=== PATIENT | male | born 1960 | race Two or more races ===

== ENCOUNTER 2025-04-18 09:57 | Inpatient (IN) | payer OTHER ==
[~2025-04-18] VITALS: Ht 175.3 cm; Wt 98.4 kg
--- NOTE | 2025-04-18 11:08 | NUR ---
PACIENTE ALERTA Y ORIENTADO X 3, REFIERE PRESENTAR FALTA DE AIRE AL DORMIR, DOLOR DE CHANDRAKANT Y CYNTHIA DOLOR DE GARGANTA HACE 5 FERRARI. SE MIDEN V/S SE REALIZA EKG Y SE UBICA.
[2025-04-18] MEDS ORDERED: ELIQUIS5 MG (11:11)
[2025-04-18] MEDS ORDERED: COZAAR100 MG (11:12)
[2025-04-18] MEDS ORDERED: EPLERENONE25 MG (11:12)
[2025-04-18] MEDS ORDERED: METFORMIN HCL1000 M2 (11:13)
[2025-04-18] MEDS ORDERED: NIFEDIPINE 10 MG CAPSULE PO ONE ×2 (11:30→12:05)
[2025-04-18] MEDS ORDERED: APIXABAN 5 MG TABLET PO SCH (11:35)
[2025-04-18] MEDS ORDERED: INSULIN GLARGINE,HUM.REC.ANLOG 1,000 UNITS/10 ML UNITS SUBCUTANEO ONE (11:45)
[2025-04-18] MEDS ORDERED: FAMOtidine 10 MG/ML (4ML VIAL) IV ONE (11:45)
[2025-04-18] MEDS ORDERED: 0.9 % SODIUM CHLORIDE 1,000 ML IV SCH (11:45)
[2025-04-18] MEDS ORDERED: INSULIN REGULAR, HUMAN 1,000 UNIT/10 ML UNITS SUBCUTANEO ONE (11:45)
[2025-04-18] MEDS ORDERED: LEVALBUTEROL HCL 1.25 MG/3 ML SOLUTION IH SCH (12:00)
[2025-04-18] MEDS ORDERED: FAMOTIDINE/PF 20 MG/2 ML VIAL ONE (12:08)
[2025-04-18] MEDS ORDERED: LEVALBUTEROL HCL 1.25 MG/3 ML SOLUTION IH ONE ×2 (12:16→17:56)
--- NOTE | 2025-04-18 12:32 | NUR ---
PACIENTE EVALUADO POR MD SALCEDOIEN ORDENA TRATMIENTO MEDICO, SE LE ORIENTA A PACIENTE SOBRE EL MISMO Y REFIERE ENTENDER. SE LE COLECTAN MUESTRAS DE LABORATORIO Y SE CANALIZA BAJO MEDIDAS ASEPTICAS. YADI GARNETT LE ADMINISTRA MEDICAMENTOS KELSI ORDEN.
[2025-04-18 12:47] LABS: BASO % 0.4 % (0.1-1.2); EOS # 0.18 (0.04-0.54); EOS % 2.6 % (0.7-7.0); LYMPH # 0.30 (1.18-3.74); LYMPH % 4.4 % (19.3-53.1); MEAN PLATELET VOLUME 11.60 fl (9.4-12.4); MONO # 0.59 (0.24-0.82); MONO % 8.7 % (4.7-12.5); NEUT # 5.70 (1.56-6.13); NEUT % 83.6 % (34.0-71.1); RED CELL DISTRIBUTION WIDTH 12.2 % (11.6-14.4)
[2025-04-18 13:12] LABS: INR 0.95
[2025-04-18 13:40] LABS: URINE APPEARANCE Clear; URINE BILIRRUBIN Negative (NEGATIVE); URINE BLOOD Moderate; URINE COLOR Yellow; URINE KETONE Negative (NEGATIVE); URINE LEUKOCYTE Negative; URINE NITRATE Negative; URINE UROBILINOGEN 0.2 E.U./dl
[2025-04-18 13:41] LABS: URINE BACTERIA 11.9 uL (0.0-1933); URINE RBC 46.1 uL (0.0-20.8)
[2025-04-18 13:43] LABS: ALT/SGPT 63.0 U/L (12-78); AST/SGOT 34.0 U/L (15-37); BILIRUBIN TOTAL 0.3 mg/dL (0.3-1.2); BUN CREA RATIO 15.0 (7.0-25.0); CREATININE SERUM 2.92 mg/dL (0.70-1.30); GFR 21.91; GLOBULINA 3.7 G/DL (2.4-3.5); OSMOLALITY SERUM 304.0 MOSM/KG (275-295)
--- NOTE | 2025-04-18 13:47 | NUR ---
SE MONITOREAN S/V Y SE LE NOTIFICA A PRAVIN MIGUEL.
[2025-04-18 13:50] LABS: GLUCOSE FASTING 403.0 mg/dL (65-100)
[2025-04-18 13:51] LABS: URINE CAST 0.87 uL (0.0-1.40); URINE EPITHELIAL CELLS 0.9 uL (0.0-38.8); URINE GLUCOSE >=1000 MG/DL (NEGATIVE); URINE PROTEIN 300 (NEGATIVE); URINE WBC 1.2 uL (0.0-23.2)
[2025-04-18] MEDS ORDERED: TAMSULOSIN HCL 0.4 MG CAP PO ONE (14:57)
[2025-04-18] MEDS ORDERED: LABETALOL HCL 200 MG/40 ML VIAL IV ONE (15:00)
[2025-04-18] MEDS ORDERED: NITROGLYCERIN IN 5 % DEXTROSE 250 ML IV SCH (15:09)
[2025-04-18] MEDS ORDERED: LABETALOL HCL 100 MG/20 ML ML ONE (15:59)
[2025-04-18] MEDS ORDERED: NITROGLYCERIN IN 5 % DEXTROSE 50 MG/250 ML BOTTLE IV ONE (16:00)
--- NOTE | 2025-04-18 16:26 | NUR ---
SE RECIBE PACIENTE ALERTA Y ORIENTADO X 3 ESFERAS EN S[place]A DE [place] DEL AREA DE OBSERVACION. SE UBICA A PACIENTE EN CAMA #1 DE ICU 2, SE CONECTA A MONITOR CARDIACO, OXIMETRIA DE PULSO Y SE COLOCA CANULA NASAL A 3LTS. RECIBIENDO IV'S 0.9NSS BAJANDO A 20ML/HR POR VENOPUNCION EN ANTEBRAZO LEON AREA JANI DE EDEMA Y ERITEMA. SE ORIENTA A PACIENTE SOBRE CONTINUIDAD DE TRATAMIENTO MEDICO, REFIERE ENTENDER. SE MIDEN SIGNOS VITALES. SE ADMINISTRAN MEDICAMENTOS KELSI ORDEN MEDICA. SE MILENA A PACIENTE EN CAMA CON BARANDAS ELEVADAS POR SEGURIDAD Y SE MANTIENE EN OBSERVACION POR CAMBIOS EN CONDICION MEDICA.PENDIENTE CONSULTA CON MEDICINA INTERNA.
[2025-04-18] MEDS ORDERED: APIXABAN 2.5 MG TABLET PO SCH (17:59)
[2025-04-18] MEDS ORDERED: INSULIN LISPRO 1,000 UNIT/10 ML UNITS SUBCUTANEO PRN (18:00)
[2025-04-18] MEDS ORDERED: DEXTROSE 50 % IN WATER 0.5 G/ML DISP.SYRIN IV PRN (18:00)
[2025-04-18] MEDS ORDERED: AMLODIPINE BESYLATE 2.5 MG TABLET PO PRN (18:15)
[2025-04-18] MEDS ORDERED: ATORVASTATIN CALCIUM 40 MG TABLET PO SCH (18:26)
[2025-04-18 19:02] LABS: D DIMER 0.55 MG/L
[2025-04-18] MEDS ORDERED: INSULIN LISPRO 1,000 UNIT/10 ML UNITS SUBCUTANEO ONE (19:40)
[2025-04-18 19:47] LABS: CHOL HDL RATIO 2.6 (0-5.0); HDL 46.0 mg/dl (40-60); LDL 53.0 mg/dl (0-130); VLDL 21.0 (0-39)
[2025-04-18 20:04] VITALS: BP 160/92; O2SAT 94
[2025-04-18 21:00] VITALS: BP 161/89; O2SAT 94
[2025-04-18] MEDS ORDERED: GUAIFENESIN/DEXTROMETHORPHAN 100MG/10ML BLIST.PACK PO ONE (21:37)
[2025-04-18 22:05] VITALS: BP 143/73; O2SAT 96
[2025-04-19] VITALS (18 sets, daily range): BP systolic 134–1401; BP diastolic 74–99; O2SAT 90–100
[2025-04-19 07:16] LABS: ALT/SGPT 43.0 U/L (12-78); AST/SGOT 26.0 U/L (15-37); BILIRUBIN TOTAL 0.31 mg/dL (0.3-1.2); BUN CREA RATIO 12.0 (7.0-25.0); CREATININE SERUM 2.9 mg/dL (0.70-1.30); GFR 22.09; GLOBULINA 3.6 G/DL (2.4-3.5); GLUCOSE FASTING 174.0 mg/dL (65-100); OSMOLALITY SERUM 297.0 MOSM/KG (275-295)
[2025-04-19] MEDS ORDERED: ACETAMINOPHEN 500 MG GEL..CAP PO ONE (07:25)
[2025-04-19] MEDS ORDERED: INSULIN LISPRO 1,000 UNIT/10 ML UNITS SUBCUTANEO ONE ×4 (08:48→20:09)
[2025-04-19] MEDS ORDERED: APIXABAN 2.5 MG TABLET PO SCH (09:00)
[2025-04-19] MEDS ORDERED: APIXABAN 5 MG TABLET PO SCH (09:00)
[2025-04-19] MEDS ORDERED: POTASSIUM BICARBONATE/CIT AC 25 MEQ TABLET.EFF PO ONE (11:00)
[2025-04-19] MEDS ORDERED: METOPROLOL SUCCINATE 25 MG TAB.SR.24H PO SCH (13:11)
[2025-04-19] MEDS ORDERED: PANTOPRAZOLE SODIUM 40 MG/VIAL VIAL IV SCH (13:12)
[2025-04-19] MEDS ORDERED: AMLODIPINE BESYLATE 5 MG TABLET PO SCH (13:13)
[2025-04-19] MEDS ORDERED: CEFTRIAXONE SODIUM 2,000 MG in 0.9 % SODIUM CHLORIDE 100 ML IV SCH (13:23)
[2025-04-19] MEDS ORDERED: NITROGLYCERIN IN 5 % DEXTROSE 250 ML IV SCH (13:30)
[2025-04-19] MEDS ORDERED: CEFTRIAXONE SODIUM 2,000 MG VIAL ONE (14:09)
[2025-04-19] MEDS ORDERED: AZITHROMYCIN 500 MG TABLET PO SCH (17:00)
[2025-04-20] VITALS (25 sets, daily range): BP systolic 117–169; BP diastolic 61–96; O2SAT 10–100
[2025-04-20] MEDS ORDERED: INSULIN NPH HUMAN ISOPHANE 1,000 UNITS/10 ML UNITS SUBCUTANEO STA (01:34)
[2025-04-20 06:55] LABS: BASO % 0.5 % (0.1-1.2); EOS # 0.07 (0.04-0.54); EOS % 1.7 % (0.7-7.0); LYMPH # 0.72 (1.18-3.74); LYMPH % 17.7 % (19.3-53.1); MEAN PLATELET VOLUME 12.00 fl (9.4-12.4); MONO # 0.80 (0.24-0.82); NEUT # 2.43 (1.56-6.13); NEUT % 59.9 % (34.0-71.1); RED CELL DISTRIBUTION WIDTH 12.2 % (11.6-14.4)
[2025-04-20 07:01] LABS: MONO % 19.7 % (4.7-12.5)
[2025-04-20 07:25] LABS: ALT/SGPT 42.0 U/L (12-78); AST/SGOT 37.0 U/L (15-37); BILIRUBIN TOTAL 0.22 mg/dL (0.3-1.2); BUN CREA RATIO 11.0 (7.0-25.0); CREATININE SERUM 3.17 mg/dL (0.70-1.30); GFR 19.93; GLOBULINA 3.2 G/DL (2.4-3.5); GLUCOSE FASTING 164.0 mg/dL (65-100); OSMOLALITY SERUM 301.0 MOSM/KG (275-295)
[2025-04-20 07:34] LABS: CHOL HDL RATIO 2.2 (0-5.0); HDL 48.0 mg/dl (40-60); LDL 43.0 mg/dl (0-130); TSH 1.22 uIU/mL (0.358-3.74); VLDL 15.0 (0-39)
[2025-04-20] MEDS ORDERED: AMINO ACIDS/PROTEIN HYDROLYS 30 ML BLIST.PACK PO SCH (17:00)
[2025-04-20] MEDS ORDERED: ACETAMINOPHEN 500 MG GEL..CAP PO PRN (22:30)
[2025-04-21] VITALS (22 sets, daily range): BP systolic 110–157; BP diastolic 49–91; O2SAT 26–100
[2025-04-21 07:27] LABS: BASO % 0.3 % (0.1-1.2); EOS # 0.23 (0.04-0.54); EOS % 6.5 % (0.7-7.0); LYMPH # 0.92 (1.18-3.74); LYMPH % 25.8 % (19.3-53.1); MEAN PLATELET VOLUME 12.00 fl (9.4-12.4); MONO # 0.62 (0.24-0.82); NEUT # 1.77 (1.56-6.13); NEUT % 49.7 % (34.0-71.1); RED CELL DISTRIBUTION WIDTH 12.1 % (11.6-14.4)
[2025-04-21 07:32] LABS: MONO % 17.4 % (4.7-12.5)
[2025-04-21 07:40] LABS: ALT/SGPT 39.0 U/L (12-78); AST/SGOT 32.0 U/L (15-37); BILIRUBIN TOTAL 0.16 mg/dL (0.3-1.2); BUN CREA RATIO 14.0 (7.0-25.0); CREATININE SERUM 3.1 mg/dL (0.70-1.30); GFR 20.45; GLOBULINA 3.2 G/DL (2.4-3.5); GLUCOSE FASTING 111.0 mg/dL (65-100); OSMOLALITY SERUM 301.0 MOSM/KG (275-295)
[2025-04-21] MEDS ORDERED: IRON FUM,PS/FOLIC/BCOMP,C NO.9 1 CAP CAPSULE PO STA (12:57)
[2025-04-21 13:56] LABS: ob NEGATIVE (NEGATIVE)
[2025-04-21] MEDS ORDERED: EPOETIN ALFA-EPBX 10,000 UNIT/ML VIAL (Retacrit) SUBCUTANEO NR (16:00)
[2025-04-21 18:54] LABS: COVID-19 AG NEGATIVE (NEGATIVE)
[2025-04-21] MEDS ORDERED: PANTOPRAZOLE SODIUM 40 MG/VIAL VIAL IV SCH (21:00)
[2025-04-22 04:00] VITALS: BP 149/88; O2SAT 98
[2025-04-22 07:44] VITALS: BP 162/76; O2SAT 100
[2025-04-22] MEDS ORDERED: INSULIN NPH HUM/REG INSULIN HM 1,000 UNIT/10 ML UNITS SUBCUTANEO STA (08:15)
[2025-04-22] MEDS ORDERED: IRON FUM,PS/FOLIC/BCOMP,C NO.9 1 CAP CAPSULE PO SCH (09:00)
[2025-04-22 12:00] VITALS: BP 175/87; O2SAT 99
[2025-04-22] MEDS ORDERED: hydrALAZINE HCL 20 MG VIAL IV PRN (15:00)
[2025-04-22 15:20] VITALS: BP 150/65; O2SAT 100
[2025-04-22] MEDS ORDERED: AMLODIPINE BESYLATE 5 MG TABLET PO SCH (17:00)
[2025-04-22 20:10] VITALS: BP 133/77; O2SAT 97
[2025-04-23 03:31] VITALS: BP 157/82; O2SAT 97
[2025-04-23 06:48] LABS: BASO % 0.5 % (0.1-1.2); EOS # 0.29 (0.04-0.54); EOS % 7.3 % (0.7-7.0); LYMPH # 1.23 (1.18-3.74); LYMPH % 30.8 % (19.3-53.1); MEAN PLATELET VOLUME 12.50 fl (9.4-12.4); MONO # 0.56 (0.24-0.82); NEUT # 1.89 (1.56-6.13); NEUT % 47.1 % (34.0-71.1); RED CELL DISTRIBUTION WIDTH 12.0 % (11.6-14.4)
[2025-04-23 07:45] LABS: MONO % 14.0 % (4.7-12.5)
[2025-04-23] MEDS ORDERED: INSULIN NPH HUM/REG INSULIN HM 1,000 UNIT/10 ML UNITS SUBCUTANEO SCH (08:00)
[2025-04-23 08:44] VITALS: BP 150/80; O2SAT 97
[2025-04-23] MEDS ORDERED: PANTOPRAZOLE SODIUM 40 MG/VIAL VIAL IV SCH (09:00)
[2025-04-23 10:36] LABS: ALT/SGPT 42.0 U/L (12-78); AST/SGOT 38.0 U/L (15-37); BILIRUBIN TOTAL 0.13 mg/dL (0.3-1.2); BUN CREA RATIO 16.0 (7.0-25.0); CREATININE SERUM 3.43 mg/dL (0.70-1.30); GFR 18.2; GLOBULINA 3.5 G/DL (2.4-3.5); OSMOLALITY SERUM 308.0 MOSM/KG (275-295)
[2025-04-23 14:06] LABS: GLUCOSE FASTING 212.0 mg/dL (65-100)
[2025-04-23 19:39] VITALS: BP 151/84
[2025-04-24 01:00] VITALS: BP 142/80; O2SAT 97
[2025-04-24] MEDS ORDERED: INSULIN NPH HUM/REG INSULIN HM 1,000 UNIT/10 ML UNITS SUBCUTANEO SCH ×2 (08:00→17:00)
[2025-04-24 09:58] VITALS: BP 154/86; O2SAT 96
[2025-04-24 17:00] VITALS: BP 143/86; O2SAT 97
[2025-04-25 02:01] VITALS: BP 143/83; O2SAT 93
[2025-04-25 06:30] LABS: BASO % 0.4 % (0.1-1.2); EOS # 0.22 (0.04-0.54); EOS % 4.5 % (0.7-7.0); LYMPH # 1.04 (1.18-3.74); LYMPH % 21.5 % (19.3-53.1); MEAN PLATELET VOLUME 11.90 fl (9.4-12.4); MONO # 0.84 (0.24-0.82); NEUT # 2.70 (1.56-6.13); NEUT % 55.8 % (34.0-71.1); RED CELL DISTRIBUTION WIDTH 12.0 % (11.6-14.4)
[2025-04-25 06:43] LABS: MONO % 17.4 % (4.7-12.5)
[2025-04-25 07:31] LABS: ALT/SGPT 41.0 U/L (12-78); AST/SGOT 33.0 U/L (15-37); BILIRUBIN TOTAL 0.26 mg/dL (0.3-1.2); BUN CREA RATIO 19.0 (7.0-25.0); CREATININE SERUM 3.22 mg/dL (0.70-1.30); GFR 19.57; GLOBULINA 3.3 G/DL (2.4-3.5); GLUCOSE FASTING 94.0 mg/dL (65-100); OSMOLALITY SERUM 304.0 MOSM/KG (275-295)
[2025-04-25] MEDS ORDERED: INSULIN NPH HUM/REG INSULIN HM 1,000 UNIT/10 ML UNITS SUBCUTANEO SCH ×2 (08:00→17:00)
[2025-04-25 09:39] VITALS: BP 166/68; O2SAT 96
[2025-04-25 12:44] LABS: CREATINE CLEARANCE 27.5 ML/MIN (97-137); CREATININE SERUM 3.43 mg/dL (0.8-1.3)
[2025-04-25 17:13] VITALS: BP 130/74; O2SAT 99
[2025-04-26 01:48] VITALS: BP 134/77; O2SAT 98
[2025-04-26] MEDS ORDERED: INSULIN NPH HUM/REG INSULIN HM 1,000 UNIT/10 ML UNITS SUBCUTANEO SCH (08:00)
[2025-04-26 08:54] VITALS: BP 155/80; O2SAT 100
[2025-04-26] MEDS ORDERED: PANTOPRAZOLE SODIUM 40 MG TABLET.DR PO SCH (09:00)
[2025-04-26] MEDS ORDERED: INTEGRA PLUS C1 EACH PO (12:24)
[2025-04-26] MEDS ORDERED: ELIQUIS2.5 MG PO (12:24)
[2025-04-26] MEDS ORDERED: LIPITOR40 M1 PO (12:25)
[2025-04-26] MEDS ORDERED: AMLODIPINE BESYL5 MG PO (12:25)
[2025-04-26] MEDS ORDERED: TOPROL XL25 M1 PO (12:25)
[2025-04-26] MEDS ORDERED: HYDRALAZINE HCL25 MG PO (12:25)
[2025-04-26] MEDS ORDERED: PANTOPRAZOLE SO40 MG PO (12:25)
[2025-04-26] MEDS ORDERED: FUROSEMIDE20 MG PO (12:25)
[2025-04-26] MEDS ORDERED: HUMULIN 70100 UNIT/2 SUBCUTANEO ×2 (12:26→12:27)
[2025-04-26] MEDS ORDERED: PROTEINEX-18 LI30 ML PO (12:27)
[2025-04-26] MEDS ORDERED: APIXABAN 2.5 MG TABLET PO SCH (17:00)
[2025-04-26 18:11] LABS: a:g ratio 0.9 (0.7-1.7); alpha 1 g 0.3 g/dL (0.0-0.4); beta g 0.9 g/dL (0.7-1.3); gamma g 1.1 g/dL (0.4-1.8); globulin t 3.3 g/dL (2.2-3.9); prot total 6.2 g/dL (6.0-8.5)
== END 2025-04-26 13:42 | disposition home or self-care (01) | DRG 291 ==
LOC: ER 09:58 → ICU-2 17:54 → ICU 04-20 02:22 → MEDI 04-22 18:49
PROVIDERS: General Practice; Internal Medicine; Internal Medicine Infectious Disease; Internal Medicine Nephrology; ADMIT Internal Medicine; ATTEND Internal Medicine
PROC: 4A12X4Z Monitoring of Cardiac Electrical Activity, External Approach (ICD-10-PCS; principal; 2025-04-19)
PROC: B246ZZZ Ultrasonography of Right and Left Heart (ICD-10-PCS; 2025-04-19)
PROC: 4A12X4Z Monitoring of Cardiac Electrical Activity, External Approach (ICD-10-PCS; 2025-04-19)
DX: I13.0 Hypertensive heart and chronic kidney disease with heart failure and stage 1 through stage 4 chronic kidney disease, or unspecified chronic kidney disease (principal); I50.23 Acute on chronic systolic (congestive) heart failure; N17.9 Acute kidney failure, unspecified; I16.9 Hypertensive crisis, unspecified; E87.3 Alkalosis; J90 Pleural effusion, not elsewhere classified; E11.65 Type 2 diabetes mellitus with hyperglycemia; E11.22 Type 2 diabetes mellitus with diabetic chronic kidney disease; D64.89 Other specified anemias; I48.0 Paroxysmal atrial fibrillation; E87.6 Hypokalemia; D63.1 Anemia in chronic kidney disease; N18.9 Chronic kidney disease, unspecified; Z79.84 Long term (current) use of oral hypoglycemic drugs; Z79.01 Long term (current) use of anticoagulants; Z53.1 Procedure and treatment not carried out because of patient's decision for reasons of belief and group pressure